=== PATIENT | male | born 1950 | race Caucasian/White ===

== ENCOUNTER 2018-08-29 18:44 | Observation (INO) ==
[2018-08-29 19:13] LABS: Hematocrit 40.4 % (37.5-50.1); Hemoglobin 13.5 g/dL (12.9-16.9); Mean Corpuscular HGB Conc 33.4 g/dL (31.6-35.5); Mean Corpuscular Hemoglobin 30.3 pg (28.0-33.3); Mean Corpuscular Volume 90.6 fL (83.0-100.0); Mean Platelet Volume 10.1 fL (9.4-12.4); Platelet Count 270 K/mcL (140-400); Red Blood Count 4.46 M/mcL (4.19-5.50); White Blood Count 7.2 K/mcL (4.3-11.1)
--- NOTE | 2018-08-29 19:14 | Emergency Department Note ---
Disposition Clinical Impression: Confusion Altered mental status Qualifiers: Altered mental status type: unspecified Qualified Code(s): R41.82 - Altered mental status, unspecified Disposition: Admitted As Inpatient Condition: Fair Referrals: Trav Mckeon DO [Non-Partnered Physician] - Forms: ED Satisfaction Letter Time of Disposition: 21:15 General Adult HPI - General Chief complaint: ED Neuro Symptoms/Deficit Stated complaint: neuro symptoms Time Seen by Provider: 08/29/18 18:48 Source: family - History of Present Illness Pain Scale: 6 - Related Data Home Medications Medication Instructions Recorded Confirmed Levothyroxine [Synthroid] 50 mcg PO DAILY 10/23/16 08/29/18 Pravastatin Sodium [Pravachol] 20 mg PO HS 10/23/16 08/29/18 metFORMIN [Glucophage] 1,000 mg PO BIDWM 10/23/16 08/29/18 Amlodipine Besylate 10 mg PO DAILY 08/29/18 08/29/18 Escitalopram Oxalate 20 mg PO DAILY 08/29/18 08/29/18 Glimepiride [Amaryl] 4 mg PO DAILY 08/29/18 08/29/18 Losartan/Hydrochlorothiazide 1 each PO DAILY 08/29/18 08/29/18 [Losartan-Hctz 50-12.5 mg Tab] Metoprolol Tartrate 50 mg PO BID 08/29/18 08/29/18 Allergies Allergy/AdvReac Type Severity Reaction Status Date / Time No Known Allergies Allergy Verified 08/29/18 18:59 Past Medical History - Past Medical History Medical history: Reports: diabetes, hyperlipidemia, hypertension, thyroid disease, TIA Surgical history: Reports: cholecystectomy, herniorrhaphy, knee replacement Psychiatric history: Reports: depression - Social History Smoking Status: Never smoker Smokeless Tobacco Status: No Alcohol use: Reports: occasionally Drug use: Reports: none Physical Exam - General General appearance: other Course Vital Signs Temperature 98.0 F 08/29/18 18:51 Pulse Rate 82 08/29/18 18:51 Respiratory Rate 18 08/29/18 18:51 Blood Pressure 188/108 08/29/18 18:51 O2 Sat by Pulse Oximetry 100 08/29/18 18:51 Temperature 97.9 F 08/29/18 19:31 Pulse Rate 63 08/29/18 20:46 Respiratory Rate 18 08/29/18 20:46 Blood Pressure 139/95 08/29/18 20:46 O2 Sat by Pulse Oximetry 100 08/29/18 19:24 Oxygen Delivery Oxygen Delivery Room Air Medical Decision Making - Lab Data Result diagrams: 08/29/18 18:54 08/29/18 18:54 Lab Results 08/29/18 08/29/18 08/29/18 Range/Units 18:51 18:54 18:54 WBC 7.2 (4.3-11.1) K/mcL RBC 4.46 (4.19-5.50) M/mcL Hgb 13.5 (12.9-16.9) g/dL Hct 40.4 (37.5-50.1) % MCV 90.6 (83.0-100.0) fL MCH 30.3 (28.0-33.3) pg MCHC 33.4 (31.6-35.5) g/dL RDW 13.0 (11.5-14.5) % Plt Count 270 (140-400) K/mcL MPV 10.1 (9.4-12.4) fL PT 11.2 (9.4-12.1) Seconds INR 1.0 APTT 33.2 (26.0-36.0) Seconds Sodium (136-145) mEq/L Potassium (3.5-5.1) mEq/L Chloride (98-107) mEq/L Carbon Dioxide (23-29) mEq/L BUN (8-23) mg/dL Creatinine (0.70-1.30) mg/dL Est GFR ( Amer) (> 60) Est GFR (Non-Af Amer) (> 60) BUN/Creatinine Ratio (6-26) Glucose (70-105) mg/dL POC Glucose 129 H (70-99) mg/dL Calculated Osmolality (280-300) Calcium (8.6-10.3) mg/dL Troponin I (< 0.04) ng/mL 08/29/18 Range/Units 18:54 WBC (4.3-11.1) K/mcL RBC (4.19-5.50) M/mcL Hgb (12.9-16.9) g/dL Hct (37.5-50.1) % MCV (83.0-100.0) fL MCH (28.0-33.3) pg MCHC (31.6-35.5) g/dL RDW (11.5-14.5) % Plt Count (140-400) K/mcL MPV (9.4-12.4) fL PT (9.4-12.1) Seconds INR APTT (26.0-36.0) Seconds Sodium 139 (136-145) mEq/L Potassium 3.6 (3.5-5.1) mEq/L Chloride 103 (98-107) mEq/L Carbon Dioxide 28 (23-29) mEq/L BUN 17 (8-23) mg/dL Creatinine 1.06 (0.70-1.30) mg/dL Est GFR ( Amer) > 60 (> 60) Est GFR (Non-Af Amer) > 60 (> 60) BUN/Creatinine Ratio 16 (6-26) Glucose 131 H (70-105) mg/dL POC Glucose (70-99) mg/dL Calculated Osmolality 291 (280-300) Calcium 9.2 (8.6-10.3) mg/dL Troponin I < 0.03 (< 0.04) ng/mL Attestation Statement - Attestation Attestation: I, Jean-Claude De Los Santos DO, examined this patient [id number] and my medical decision-making was reviewed with Tapan Spangler DO , Resident Physician. I agree with the documented findings, disposition and treatment plan as described except to the extent set forth below. I personally supervised and was present for the goodrich/critical portions of the procedures completed by the resident documented below. Please see my progress notes for details. 67-year-old male presents emergency room with confusion. Symptom onset was approximately 3 hours prior to arrival. Patient has had waxing and waning symptoms since the end of July where he was seen in outside facility. They evaluated him and told the family that he may have had a TIA. Patient had no other acute medical issues of note according to them. Patient was discharged home and was doing better and then acutely this afternoon his symptoms changed again. He had some difficulty with speech and confusion. On arrival here she was able to wake up and answer questions and talk to us appropriately. Appropriate medical insight to his condition. He had no signs of ataxia or cerebellar function deficits at that time. Because of the acute onset of the symptoms as well as availability of resources, the patient had a stroke alert called immediately on arrival. Patient is not taking any blood thinners at this point. His vital signs were stable outside a very high blood pressure. Patient on physical exam his head is atraumatic his pupils are equal and reactive his oropharynx is patent trachea is midline. Lungs are clear heart is regular. Abdomen is soft. Extremities are normal. Finger to nose testing and [id number] testing is normal. NIH stroke scale on presentation is negative. [facility] will be contacted after CT imaging of the head and labs are resulted. Disposition pending full workup and treatment course. Initial presentation is not consistent with an acute stroke evaluation but we are using it as a potential for acute cranial abnormality justifies further workup. We will continue to monitor his treatment course is completed. EKG was reviewed by myself in documented by the resident physician. Chest x-ray and urinalysis will also be added on. See detailed documentation the physical exam medical intervention, medical decision-making disposition the resident physician's note. No critical care applied to the patient's treatment course at this time. [address] [facility] physician [address]. Garcia reviewed the case and agreed that this is not made acute stroke criteria and does not justify tPA intervention at this time. Recommended further evaluation for psychiatric, metabolic, infectious etiology causing the symptoms here today. Stroke alert was canceled at that time. Patient is otherwise stable. He still continued at baseline mentation is acting appropriate. Patient will be monitored here in the emergency department until disposition is determined. Patient will most likely require admission for further imaging and establish treatment. [address] Lowe reviewed the case. Discussion was had about the waxing and waning of the symptoms as well as a concern for underlying psychiatric related illness. Patient is completely lucid and answers questions appropriately throughout the treatment course. He just describes feeling odd and wants to know why. CT imaging the head was negative labs otherwise all unremarkable. Blood pressures coming down appropriately. Patient will be admitted for symptomatic monitoring and then possible MRI and further treatment. No other recommendations or concerns are noted at this point. Patient is otherwise stable to time of admission
--- NOTE | 2018-08-29 19:17 | Emergency Department Note ---
Disposition Clinical Impression: Confusion Altered mental status Qualifiers: Altered mental status type: unspecified Qualified Code(s): R41.82 - Altered mental status, unspecified Disposition: Admitted As Inpatient Condition: Fair Time of Disposition: 20:51 Neuro HPI - General Chief Complaint: ED Neuro Symptoms/Deficit Stated Complaint: neuro symptoms Time Seen by Provider: 08/29/18 18:48 Source: family (girlfriend) Mode of arrival: ambulatory Limitations: no limitations Nursing Notes Reviewed: Yes Vital Signs Reviewed: Yes - History of Present Illness HPI Narrative: 67-year-old male history of hypertension presents emergency department with confusion. Girlfriend is at bedside and states around 1500 he had sudden onset confusion. He was repeating words and unable to remember things. This is signi ficant change for the past several days where he was initially evaluated at [facility] August 14 and discharge August 18 for similar symptoms. He was discharge home with additional antihypertensive medications. There is no noted extremity weakness or facial droop or slurred speech by he is slow to answer. He does not take any anticoagulants. Reportedly had a fall prior admission. He is also reported in of a chronic headache without any visual changes. He states everything appears foggy. Denies any recent illness fever cough congestion shortness of breath. His point of care glucose performed here 192. Stroke alert was initiated to help mobilize resources. No reported history of stroke. - Related Data Home Medications: Home Medications Medication Instructions Recorded Confirmed Levothyroxine [Synthroid] 50 mcg PO DAILY 10/23/16 08/29/18 Pravastatin Sodium [Pravachol] 20 mg PO HS 10/23/16 08/29/18 metFORMIN [Glucophage] 1,000 mg PO BIDWM 10/23/16 08/29/18 Amlodipine Besylate 10 mg PO DAILY 08/29/18 08/29/18 Escitalopram Oxalate 20 mg PO DAILY 08/29/18 08/29/18 Glimepiride [Amaryl] 4 mg PO DAILY 08/29/18 08/29/18 Losartan/Hydrochlorothiazide 1 each PO DAILY 08/29/18 08/29/18 [Losartan-Hctz 50-12.5 mg Tab] Metoprolol Tartrate 50 mg PO BID 08/29/18 08/29/18 Allergies/Adverse Reactions: Allergies Allergy/AdvReac Type Severity Reaction Status Date / Time No Known Allergies Allergy Verified 08/29/18 18:59 Limitations: ROS unobtainable due to patients medical condition (History mostly obtained through girlfriend) Past Medical History - Past Medical History Source: obtained from family Medical history: Reports: diabetes, hyperlipidemia, hypertension, thyroid disease, TIA Surgical history: Reports: cholecystectomy, herniorrhaphy, knee replacement Psychiatric history: Reports: depression - Social History Smoking Status: Never smoker Smokeless Tobacco Status: No Alcohol use: Reports: occasionally Drug use: Reports: none Physical Exam - General Limitations: altered mental status General appearance: anxious, other (Patient has intermittent episodes of increase anxiety and periods of crying) - Head Head exam: atraumatic, normocephalic, normal inspection - Eye Eye exam: Present: normal appearance, PERRL, EOMI. Absent: nystagmus - ENT ENT exam: normal exam, normal oropharynx, mucous membranes moist - Neck Neck exam: Present: normal inspection, full ROM, trachea midline - Chest Chest inspection: Present: normal inspection, symmetric chest wall rise - Respiratory Respiratory exam: Present: normal lung sounds bilaterally - Cardiovascular Cardiovascular exam: Present: regular rate, normal rhythm, normal heart sounds - Abdominal Exam Abdominal exam: Present: soft, Non-Tender, normal bowel sounds. Absent: tenderness, distention, guarding, rebound, rigidity - Extremities Exam Extremities exam: Present: normal inspection, full ROM, other (Left distal index finger amputation). Absent: tenderness, pedal edema - Back Exam Back exam: Present: normal inspection, full ROM. Absent: tenderness - Neurological Exam Neurological exam: Present: alert, CN II-XII intact - Expanded Neurological Exam Cranial nerves: EOM function (II, III, IV, ): Normal, facial sensation (V): Normal, facial palsy (VII): Normal, gag reflex (IX): Normal, spinal accessory function (XI): Normal, tongue deviation (XII): Normal Cerebellar function: finger to nose: Normal, heel to lilly: Normal Motor strength - LUE: 5/5 Motor strength - RUE: 5/5 Motor strength - LLE: 5/5 Motor strength - RLE: 5/5 Upper motor neuron exam: phuc neglect: Absent bilaterally, pronator drift: Absent bilaterally Sensory exam upper extremity: light touch: Normal Sensory exam lower extremity: light touch: Normal Coma Scale Eye Opening: Spontaneous Coma Scale Motor Response: Obeys Commands Coma Scale Verbal Response: Confused Coma Scale Total: 14 - Psychiatric Psychiatric exam: Present: normal mood, depressed, anxious, flat affect. Absent: agitated - Skin Skin exam: Present: warm, dry, intact, normal color. Absent: rash, cyanosis, diaphoresis Course Course Narrative: Patient presents with reports that confusion and delayed speech. On examination no neurologic focal deficits. NIH score of 0. Stroke alert was initially ordered to help mobilize resources to have quick evaluation. He is outside the TPA window. Otherwise no reports of febrile illnesses. Namely states this is been a chronic thing ever since his discharge from the hospital approximately 2 weeks ago. He has intermittent episodes of sudden bursts of anxiety as he continues to question why this is happening to him. - Reevaluation(s) Reevaluation #1: Review of his labs unremarkable. I think there is a component of possible psychiatric issues however given his continued confused state he would benefit further evaluation. His CT scan did show an old infarct but we do not have a prior CT to compare. This is not consistent with his current presentation. There was also initial consideration for PRES, but his CT head did not reveal any acute findings in his blood pressure continues to spontaneously improved without any significant mental status improvement. After his sudden bursts of anxiety his speech was clear and he was quiet alert and oriented. He has no meningeal signs. I do not suspect any other infectious etiology. She would benefit further evaluation with admission. Patient and family members are in agreement with this plan. Impression is altered mental status and confusion. - Consultations Consultation #1: [facility] reports critical finding of old right lacunar infarct, no acute findings. Dr. Garcia NEUROLOGIST from [facility], not tPa candidate. Possible psychiatric v metabolic etiology. Recommends further evaluation. Time: 19:17 Consultation #2: Spoke with on-call hospitalist bharti Braun to admit for AMS, confusion. No further orders at this time Vital Signs Temperature 98.0 F 08/29/18 18:51 Pulse Rate 82 08/29/18 18:51 Respiratory Rate 18 08/29/18 18:51 Blood Pressure 188/108 08/29/18 18:51 O2 Sat by Pulse Oximetry 100 08/29/18 18:51 Temperature 97.9 F 08/29/18 19:31 Pulse Rate 63 08/29/18 20:46 Respiratory Rate 18 08/29/18 20:46 Blood Pressure 139/95 08/29/18 20:46 O2 Sat by Pulse Oximetry 100 08/29/18 19:24 Oxygen Delivery Oxygen Delivery Room Air Neuro Symptoms/Deficit - MDM Narrative Medical decision making narrative: Patient was discussed with my attending physician who agrees with ED management and final disposition. They independently evaluated the patient. Please refer to their attestation to this encounter for additional information. This note was generated by [employer] voice recognition software and as a result grammatical or spelling errors may occur using this program. - Medical Records Medical records reviewed: Yes I reviewed the patient's medical records. - Lab Data Lab results reviewed: Yes I reviewed the patient's lab results. Result diagrams: 08/29/18 18:54 08/29/18 18:54 Lab Results 08/29/18 08/29/18 08/29/18 Range/Units 18:51 18:54 18:54 WBC 7.2 (4.3-11.1) K/mcL RBC 4.46 (4.19-5.50) M/mcL Hgb 13.5 (12.9-16.9) g/dL Hct 40.4 (37.5-50.1) % MCV 90.6 (83.0-100.0) fL MCH 30.3 (28.0-33.3) pg MCHC 33.4 (31.6-35.5) g/dL RDW 13.0 (11.5-14.5) % Plt Count 270 (140-400) K/mcL MPV 10.1 (9.4-12.4) fL PT 11.2 (9.4-12.1) Seconds INR 1.0 APTT 33.2 (26.0-36.0) Seconds Sodium (136-145) mEq/L Potassium (3.5-5.1) mEq/L Chloride (98-107) mEq/L Carbon Dioxide (23-29) mEq/L BUN (8-23) mg/dL Creatinine (0.70-1.30) mg/dL Est GFR ( Amer) (> 60) Est GFR (Non-Af Amer) (> 60) BUN/Creatinine Ratio (6-26) Glucose (70-105) mg/dL POC Glucose 129 H (70-99) mg/dL Calculated Osmolality (280-300) Calcium (8.6-10.3) mg/dL Troponin I (< 0.04) ng/mL Urine Color (Yellow) Urine Clarity (Clear) Urine pH (5.0-8.0) pH Units Ur Specific [place] (1.010-1.025) Urine Protein (Neg-Trace) mg/dL Urine Glucose (UA) (Normal) mg/dL Urine Ketones (Negative) mg/dL Urine Blood (Negative) Urine Nitrite (Negative) Urine Bilirubin (Negative) Urine Urobilinogen (Normal) mg/dL Ur Leukocyte Esterase (Negative) Urine Microscopic RBC (0-3) per hpf Urine Microscopic WBC (0-3) per hpf Ur Squamous Epith Cells (None-Few) per lpf Urine Bacteria (None-Few) per hpf Hyaline Casts (None-Few) per lpf Ur Culture Indicated? (NO) 08/29/18 08/29/18 Range/Units 18:54 21:00 WBC (4.3-11.1) K/mcL RBC (4.19-5.50) M/mcL Hgb (12.9-16.9) g/dL Hct (37.5-50.1) % MCV (83.0-100.0) fL MCH (28.0-33.3) pg MCHC (31.6-35.5) g/dL RDW (11.5-14.5) % Plt Count (140-400) K/mcL MPV (9.4-12.4) fL PT (9.4-12.1) Seconds INR APTT (26.0-36.0) Seconds Sodium 139 (136-145) mEq/L Potassium 3.6 (3.5-5.1) mEq/L Chloride 103 (98-107) mEq/L Carbon Dioxide 28 (23-29) mEq/L BUN 17 (8-23) mg/dL Creatinine 1.06 (0.70-1.30) mg/dL Est GFR ( Amer) > 60 (> 60) Est GFR (Non-Af Amer) > 60 (> 60) BUN/Creatinine Ratio 16 (6-26) Glucose 131 H (70-105) mg/dL POC Glucose (70-99) mg/dL Calculated Osmolality 291 (280-300) Calcium 9.2 (8.6-10.3) mg/dL Troponin I < 0.03 (< 0.04) ng/mL Urine Color Yellow (Yellow) Urine Clarity Clear (Clear) Urine pH 7.5 (5.0-8.0) pH Units Ur Specific [place] > 1.030 H (1.010-1.025) Urine Protein 30 H (Neg-Trace) mg/dL Urine Glucose (UA) Normal (Normal) mg/dL Urine Ketones Trace H (Negative) mg/dL Urine Blood Large H (Negative) Urine Nitrite Negative (Negative) Urine Bilirubin Negative (Negative) Urine Urobilinogen Normal (Normal) mg/dL Ur Leukocyte Esterase Negative (Negative) Urine Microscopic RBC TNTC H (0-3) per hpf Urine Microscopic WBC 0-3 (0-3) per hpf Ur Squamous Epith Cells Moderate H (None-Few) per lpf Urine Bacteria None Seen (None-Few) per hpf Hyaline Casts None Seen (None-Few) per lpf Ur Culture Indicated? NO (NO) - Radiology Data Radiology results reviewed: Yes I reviewed the patient's radiology results. Head CT 08/29/18 19:01 IMPRESSION: No acute intracranial abnormality. Small old lacunar infarct in the right parietal [facility] radiata. Results were reported to Dr. Spangler at 7:15 p.m. on August 29, 2018. D/ / Erwin Valerio MD / Erwin Valerio MD Interpreting Provider: Erwin Valerio MD Chest X-Ray 08/29/18 20:00 IMPRESSION: Low lung volume study showing bibasilar airspace disease, likely accentuated by low lung volumes. Correlation for edema or pneumonia is recommended. Follow-up is recommended, preferably with a PA and lateral study. D/ / Megha Encinas Cha, MD / Megha Encinas Cha, MD Interpreting Provider: Megha Encinas Cha, MD - EKG Data EKG attestation: Yes I reviewed and interpreted this EKG. EKG results narrative: EKG performed 1852 normal sinus rhythm 76 beats per minute, normal axis, early R wave progression, no ST elevation or depression, intervals appear within normal limits. No old EKG available for comparison at this time. No acute ischemic changes. NIH Stroke Scale - Level of Consciousness LOC: Alert - LOC Questions LOC Questions: Answers both correctly - LOC Commands LOC Commands: Performs both correctly - Best Gaze Best Gaze: Normal - Visual Visual: No visual loss - Facial Palsy Facial Palsy: Normal - Motor Arms Motor Arm-Left: No drift for 10 seconds Motor Arm-Right: No drift for 10 seconds - Motor Legs Motor Leg-Left: No drift for 5 seconds Motor Leg-Right: No drift for 5 seconds - Limb Ataxia Limb Ataxia: Absent of affected limb too weak to perform exam - Sensory Sensory: Normal - Best Language Best Language: No aphasia - Dysarthria Dysarthria: Normal - Extinction and Inattention Extinction and Inattention: Normal - NIHSS Total Score NIHSS Total Score: 0 TPA Checklist - Eligibilty for IV tPA 2. Clinical diagnosis of ischemic stroke causing deficit: No - LKW: 3-4.5 hrs Add. Warnings/Precautions Patient/family understanding: The patient/family members have been counseled and understood the risk, benefit, and alternatives of treatment. Attestation Statement - Attestation Attestation: I, Jean-Claude De Los Santos DO, examined this patient [id number] and my medical decision-making was reviewed with Tapan Spangler DO , Resident Physician. I agree with the documented findings, disposition and treatment plan as described except to the extent set forth below. I personally supervised and was present for the goodrich/critical portions of the procedures completed by the resident documented below. Please see my progress notes for details.
[2018-08-29 19:23] LABS: Prothrombin Time 11.2 Seconds (9.4-12.1)
[2018-08-29 19:25] LABS: Activated Partial Thrombo Time 33.2 Seconds (26.0-36.0)
[2018-08-29 19:27] LABS: BUN/Creatinine Ratio 16 (6-26); Blood Urea Nitrogen 17 mg/dL (8-23); Calcium 9.2 mg/dL (8.6-10.3); Carbon Dioxide 28 mEq/L (23-29); Chloride 103 mEq/L (98-107); Glucose 131 mg/dL (70-105); Osmolality,Calculated 291 (280-300); Potassium 3.6 mEq/L (3.5-5.1); Sodium 139 mEq/L (136-145); eGFR For African Americans > 60 (> 60); eGFR For Non-African Americans > 60 (> 60)
[2018-08-29 19:28] LABS: Troponin I < 0.03 ng/mL (< 0.04)
[2018-08-29] MEDS ORDERED: Aspirin 325 MG TABLET PO ONE (20:39)
[2018-08-29 21:15] LABS: Bilirubin,Urine Negative (Negative); Blood,Urine Large (Negative); Clarity,Urine Clear (Clear); Color,Urine Yellow (Yellow); Glucose,Urine (UA) Normal (Normal); Ketones,Urine Trace mg/dL (Negative); Leukocyte Esterase,Urine Negative (Negative); Nitrite,Urine Negative (Negative); PH,Urine 7.5 pH Units (5.0-8.0); Protein,Urine 30 mg/dL (Neg-Trace); Specific Gravity,Urine > 1.030 (1.010-1.025); Urobilinogen,Urine Normal (Normal)
[2018-08-29 21:17] LABS: Bacteria,Urine None Seen per hpf (None-Few); Hyaline Casts,Urine None Seen per lpf (None-Few); RBC,Urine TNTC per hpf (0-3); Squamous Epithelial Cell,Urine Moderate per lpf (None-Few); WBC,Urine 0-3 per hpf (0-3)
[2018-08-30] MEDS ORDERED: Ondansetron 4 MG/2 ML VIAL IVP PRN (00:10)
[2018-08-30] MEDS ORDERED: Naloxone 0.4 MG/ML INJ IVP PRN (00:10)
[2018-08-30] MEDS ORDERED: Acetaminophen 325 MG TABLET PO PRN (00:10)
[2018-08-30] MEDS ORDERED: *HR* Dextrose 50 % in Water (Syg) 50 ML SYRINGE IVP PRN (00:18)
[2018-08-30] MEDS ORDERED: Dextrose Gel 15 GM/37.5 ML TUBE PO PRN ×2 (00:18)
[2018-08-30] MEDS ORDERED: D5% in Water 1,000 ML IVC PRN (00:18)
[2018-08-30] MEDS: 0.9 % Sodium Chloride 1,000 ML IVC SCH ×2 (01:23→12:27)
--- NOTE | 2018-08-30 01:30 | Internal Med History&Physical ---
Date of Encounter: 08/29/18 Time of Encounter: 23:40 Internal Medicine - H&P: HPI Chief complaint: confusion; dysarthria Admitted From: Emergency Dept Plans for Post Hospital Care: Home History of present illness: Mr. Barrow is a 67 year old male who presents to the ER today with acute onset of global confusion/amnesia, dysarthria, and unsteadiness. His was sent to the ER by family for possible stroke. Stroke alert was called and consultation was made with [facility] neurology. Patient was deemed not a candidate for TPA and did not warrant transfer to [facility]. He was recommended for admission to [facility] for stroke workup and possible other etiologies for his neurocognitive symptoms. Upon my assessment of the patient, he is sleeping but easily arousable. His significant other is at the bedside. She provides much of history, and he confirms most of it. He appears to have significant amnesia of the past 2 weeks. He is initially slow to respond but verbalizes well and communicates well during our conversation. He was hospitalized just 2 weeks ago at [facility] and was told that he might have had a stroke. Our CT scan here suggests an old lacunar infarct. He denies any prior known strokes. He denies any fevers, chills, night sweats, seizure activity, or syncopal spells. Today's spell included acute confusion/amnesia, initial dysarthria expressive aphasia, and difficulty ambulating and unsteadiness. Symptoms have all resolved, but he still has a timeframe where he does not remember what transpired -- roughly the last 2 weeks. Regarding his medications, he has had 2 new medications added since his hospitalization at [place]. These include amlodipine and losartan/HCT. I reviewed his labs and note that he has significant blood in his urine. He denies any flank pain, dysuria, or any gross hematuria. He has had no fevers or chills. He has been working excessively in an environment which is not air conditioned and he has been sweating profusely. He denies any episodes of hypoglycemia. He is diabetic and takes oral medications. Past Med Surg Social Fam HX - Past Medical History Attestation: Yes The following information was validated with the patient. Source: patient, old records reviewed, obtained from family Medical history: diabetes, hyperlipidemia, hypertension, thyroid disease, TIA Psychiatric history: depression - Past Surgical History Surgical History: cholecystectomy, herniorrhaphy, knee replacement - Social History Smoking Status: Never smoker Smokeless Tobacco Status: No Alcohol use: occasionally Drug use: none Current living situation: Home Activity Level: Independent ambulation Recent Out of Country Travel Within the Last 8 Weeks: No - Family History Mother Hx Family Neuromuscular Disorders: No Hx Family Neurologic Disorders: No Father Hx Family Neuromuscular Disorders: No Hx Family Neurologic Disorders: No Internal Medicine - H&P: Meds Levothyroxine [Synthroid] 50 mcg PO DAILY 10/23/16 [History] Pravastatin Sodium [Pravachol] 20 mg PO HS 10/23/16 [History] metFORMIN [Glucophage] 1,000 mg PO BIDWM 10/23/16 [History] Amlodipine Besylate 10 mg PO DAILY 08/29/18 [History] Escitalopram Oxalate 20 mg PO DAILY 08/29/18 [History] Glimepiride [Amaryl] 4 mg PO DAILY 08/29/18 [History] Losartan/Hydrochlorothiazide [Losartan-Hctz 50-12.5 mg Tab] 1 each PO DAILY 08/29/18 [History] Metoprolol Tartrate 50 mg PO BID 08/29/18 [History] Allergy/AdvReac Type Severity Reaction Status Date / Time No Known Allergies Allergy Verified 08/29/18 18:59 - Constitutional Constitutional: weakness, no chills, no fever(s), no falls, no night sweats - EENT Eyes: no blurry vision, no change in vision Nose, mouth and throat: no nasal congestion, no sinus pressure, no sore throat - Cardiovascular Cardiovascular ROS IM: no chest pain, no dyspnea, no dyspnea on exertion, no lightheadedness, no orthopnea, no syncope - Respiratory Respiratory: no cough, no dyspnea on exertion, no chest congestion, no excessive phlegm production, no change in phlegm color - Gastrointestinal Gastrointestinal: no abdominal pain, no diarrhea, no hematemesis, no hemato chezia, no melena, no nausea, no vomiting - Genitourinary Genitourinary ROS male: no dysuria, no flank pain, no hematuria - Musculoskeletal Musculoskeletal ROS IM: no arthralgias, no back pain - Integumentary Integumentary IM: no rash, no jaundice - Neurological Neurological ROS: abnormal speech, confusion, disequilibrium, dizziness, no focal weakness, no frequent falls, no headache(s) - Psychiatric Psychiatric: no anxiety, no depression - Endocrine Endocrine IM: no cold intolerance, no heat intolerance, no polydipsia, no polyphagia, no polyuria - Allergic/Immunologic Allergic/Immunologic: no GI upset with certain foods - Constitutional Vitals: Temp Pulse Resp BP Pulse Ox 98.0 F 69 16 140/87 96 08/29/18 22:24 08/29/18 22:24 08/29/18 22:24 08/29/18 22:24 08/29/18 22:24 General appearance: Present: cooperative, mild distress, A&O X 3, pleasant, answers questions appropriately Exam: initially confused, disoriented, and amnesic; shortly starting conversation he appeared to be normal -- confirmed girlfriend - Head Head exam: Present: atraumatic, normal inspection - Eye Eye exam: Present: EOMI, PERRL. Absent: scleral icterus Pupils: Present: normal accommodation - ENT ENT exam: Present: mucous membranes dry, normal exam, normal oropharynx - Neck Neck exam general surgery: Present: full ROM, supple, trachea midline. Absent: tenderness, nuchal rigidity, thyromegaly - Respiratory Respiratory exam: Present: CTAB. Absent: chest wall tenderness, rales, rhonchi, wheezes - Cardiovascular Cardiovascular exam: Present: RRR, +S1, +S2. Absent: diastolic murmur, systolic murmur - GI/Abdominal GI/Abdominal exam: Present: normal bowel sounds, soft. Absent: guarding, hepatomegaly, mass, rebound, splenomegaly, tenderness - Extremities Exam Extremities exam: Present: full ROM, normal capillary refill, warm, radial pulses palpable and symmetrical. Absent: calf tenderness, joint swelling, pedal edema, tenderness - Back Exam Back exam: Absent: CVA tenderness (L), CVA tenderness (R) - Neurological Exam Neurological exam: Present: alert, CN II-XII intact, oriented X3, reflexes n ormal, strengths equal and symetr throughout. Absent: pronater drift, facial droop, speech deficit Additional comments: abnormal finger to nose testing and subtle abnormal heel to lilly testing - Psychiatric Psychiatric exam: Present: flat affect - Skin Skin exam: Present: dry, intact, warm Internal Med - H&P Results - Labs CBC & Chem 7: 08/29/18 18:54 08/29/18 18:54 Labs: Short CBC 08/29/18 Range/Units 18:54 WBC 7.2 (4.3-11.1) K/mcL Hgb 13.5 (12.9-16.9) g/dL Hct 40.4 (37.5-50.1) % Plt Count 270 (140-400) K/mcL BMP 08/29/18 18:54 Sodium 139 Potassium 3.6 Chloride 103 Carbon Dioxide 28 BUN 17 Creatinine 1.06 Glucose 131 H Calcium 9.2 Cardiac Enzymes 08/29/18 Range/Units 18:54 Troponin I < 0.03 (< 0.04) ng/mL Urine 08/29/18 Range/Units 21:00 Urine Color Yellow (Yellow) Urine Clarity Clear (Clear) Urine pH 7.5 (5.0-8.0) pH Units Ur Specific [place] > 1.030 H (1.010-1.025) Urine Protein 30 H (Neg-Trace) mg/dL Urine Glucose (UA) Normal (Normal) mg/dL - EKG Data -: EKG Interpreted by Myself - EKG Data Prior EKG available for review: no EKG comments: 08/30/18 01:35 NSR; no acute St-T changes - Impressions ITS Impressions Head CT 08/29/18 19:01 IMPRESSION: No acute intracranial abnormality. Small old lacunar infarct in the right parietal Hayden radiata. Results were reported to Dr. Spangler at 7:15 p.m. on August 29, 2018. D/ / Erwin Valerio MD / Erwin Valerio MD Interpreting Provider: Erwin Valerio MD Chest X-Ray 08/29/18 20:00 IMPRESSION: Low lung volume study showing bibasilar airspace disease, likely accentuated by low lung volumes. Correlation for edema or pneumonia is recommended. Follow-up is recommended, preferably with a PA and lateral study. D/ / Megha Encinas Cha, MD / Megha Encinas Cha, MD Interpreting Provider: Megha Encinas Cha, MD - Diagnostic Studies CT scan - head Status: image reviewed by me (negative; old lacunar infarct) - Assessment and Plan (1) TIA (transient ischemic attack) Current Visit: Yes Status: Acute Assessment and plan: 1. Will proceed with stroke work-up including neurochecks. 2. MRI brain, Carotid Dopplers, and ECHO ordered. 3. Consult neurology. 4. Consult PT/OT. 5. Monitor glucose for signs of hypoglycemia. (2) Hematuria Current Visit: Yes Status: Acute Assessment and plan: 1. CT Renal Study ordered. 2. Hydrate with IVF. 3. CPK ordered given recent excessive work and heat exposure. 4. May need urology and/or nephrology consultation. Qualifiers: Hematuria type: unspecified type Qualified Code(s): R31.9 - Hematuria, unspecified (3) Type 2 diabetes mellitus Current Visit: Yes Status: Chronic Assessment and plan: 1. Hold oral meds. 2. Will order SSI and monitor glucose closely. Qualifiers: Diabetes mellitus manager terminal insulin use: without jail use Diabetes mellitus complication status: with diabetic arthropathy Diabetes mellitus complication detail: with neuropathic arthropathy Qualified Code(s): E11.610 - Type 2 diabetes mellitus with diabetic neuropathic arthropathy (4) Altered mental status Current Visit: Yes Status: Acute Assessment and plan: 1. Back to baseline now per girlfriend. 2. Monitor and proceed with stroke work-up as above. 3. Avoid mind-altering medications. Qualifiers: Altered mental status type: transient alteration of awareness Qualified Code(s): R40.4 - Transient alteration of awareness (5) DVT prophylaxis Current Visit: Yes Status: Acute Assessment and plan: 1. EPCD's.
[2018-08-30 07:30] LABS: Basophils % 0.8 %; Eosinophils # 0.2 K/mcL (0.0-0.6); Eosinophils % 3.4 %; Hematocrit 38.7 % (37.5-50.1); Immature Granulocytes % 0.4 % (0-4); Lymphocytes # 1.2 K/mcL (0.6-4.6); Lymphocytes % 25.2 %; Mean Corpuscular HGB Conc 33.6 g/dL (31.6-35.5); Mean Corpuscular Hemoglobin 30.4 pg (28.0-33.3); Mean Corpuscular Volume 90.4 fL (83.0-100.0); Monocytes # 0.4 K/mcL (0.0-1.3); Monocytes % 8.3 %; Neutrophils # 2.9 K/mcL (1.6-8.9); Platelet Count 236 K/mcL (140-400); Red Blood Count 4.28 M/mcL (4.19-5.50); Red Cell Distribution Width 12.9 % (11.5-14.5); Segmented Neutrophils % 61.9 %; White Blood Count 4.7 K/mcL (4.3-11.1)
[2018-08-30 07:48] LABS: Alanine Aminotransferase 18 Units/L (7-52); Albumin 3.6 g/dL (3.5-5.7); Albumin/Globulin Ratio 1.4 (1.1-2.2); Alkaline Phosphatase 90 Units/L (34-104); Aspartate Amino Transferase 16 Units/L (13-39); BUN/Creatinine Ratio 14 (6-26); Bilirubin,Total 0.4 mg/dL (0.3-1.0); Blood Urea Nitrogen 11 mg/dL (8-23); Calcium 8.7 mg/dL (8.6-10.3); Carbon Dioxide 27 mEq/L (23-29); Chloride 102 mEq/L (98-107); Globulin 2.6 g/dL (2.4-3.5); Glucose 136 mg/dL (70-105); Magnesium 1.8 mg/dL (1.6-2.6); Osmolality,Calculated 293 (280-300); Potassium 3.1 mEq/L (3.5-5.1); Sodium 141 mEq/L (136-145); Total Protein 6.2 g/dL (6.4-8.9); eGFR For African Americans > 60 (> 60); eGFR For Non-African Americans > 60 (> 60)
[2018-08-30 07:54] LABS: INR 1.1; Prothrombin Time 12.1 Seconds (9.4-12.1)
[2018-08-30 07:57] LABS: Activated Partial Thrombo Time 33.5 Seconds (26.0-36.0)
--- NOTE | 2018-08-30 08:24 | Internal Med Progress Note ---
Hospitalist Progress Note - Encounter Date of Encounter: 08/30/18 Time of Encounter: 09:30 - Subjective Interval History: Trav Barrow is a 67 YOM with history of DM, HTN, HLD, thyroid disease who presented to the ER with complaint of weakness and amnesia for the past 2 weeks. Stroke alert was called, CT show possible old lacunar infarct and [facility] consult stated that patient was not a candidate for TPA. He was admitted for stroke workup. MRI, carotid dopplers, and ECHO pending. - Exam Vitals: Temp Pulse Resp BP Pulse Ox 97.9 F 69 15 156/97 95 08/30/18 06:44 08/30/18 06:44 08/30/18 06:44 08/30/18 06:44 08/30/18 06:44 - Time Spent with Patient Total time spent is greater than 50% in coordination of care (as documented) at patient's floor/unit and/or counseling patient: Internal Medicine: Result - Labs CBC & Chem 7: 08/30/18 07:04 08/30/18 07:04 Labs: Short CBC 08/29/18 08/30/18 Range/Units 18:54 07:04 WBC 7.2 4.7 (4.3-11.1) K/mcL Hgb 13.5 13.0 (12.9-16.9) g/dL Hct 40.4 38.7 (37.5-50.1) % Plt Count 270 236 (140-400) K/mcL Neutrophils # 2.9 (1.6-8.9) K/mcL BMP 08/29/18 08/30/18 18:54 07:04 Sodium 139 141 Potassium 3.6 3.1 L Chloride 103 102 Carbon Dioxide 28 27 BUN 17 11 Creatinine 1.06 0.80 Glucose 131 H 136 H Calcium 9.2 8.7 Cardiac Enzymes 08/29/18 Range/Units 18:54 Troponin I < 0.03 (< 0.04) ng/mL Liver Function 08/30/18 Range/Units 07:04 Total Bilirubin 0.4 (0.3-1.0) mg/dL AST 16 (13-39) Units/L ALT 18 (7-52) Units/L Alkaline Phosphatase 90 (34-104) Units/L Albumin 3.6 (3.5-5.7) g/dL Urine 08/29/18 Range/Units 21:00 Urine Color Yellow (Yellow) Urine Clarity Clear (Clear) Urine pH 7.5 (5.0-8.0) pH Units Ur Specific [place] > 1.030 H (1.010-1.025) Urine Protein 30 H (Neg-Trace) mg/dL Urine Glucose (UA) Normal (Normal) mg/dL - ABG Interpretation ABG results: PT/INR, D-dimer PT 12.1 Seconds (9.4-12.1) 08/30/18 07:04 - Impressions Impressions Head CT 08/29/18 19:01 IMPRESSION: No acute intracranial abnormality. Small old lacunar infarct in the right parietal Hayden radiata. Results were reported to Dr. Spangler at 7:15 p.m. on August 29, 2018. D/ / Erwin Valerio MD / Erwin Valerio MD Interpreting Provider: Erwin Valerio MD Chest X-Ray 08/29/18 20:00 IMPRESSION: Low lung volume study showing bibasilar airspace disease, likely accentuated by low lung volumes. Correlation for edema or pneumonia is recommended. Follow-up is recommended, preferably with a PA and lateral study. D/ / Megha Encinas Cha, MD / Megha Encinas Cha, MD Interpreting Provider: Megha Encinas Cha, MD Consult Discharge Plan - Plan Referrals: Trav Mckeon DO [Primary Care Provider] -
[2018-08-30 08:31] LABS: Estimated Average Glucose 192 mg/dl
--- NOTE | 2018-08-30 08:43 | Neurology - Consult Note ---
Date of Encounter: 08/30/18 Time of Encounter: 08:43 Assessment and Plan (1) Altered mental status Current Visit: Yes Status: Acute Patient presented with generalized confusion, amnesia, weakness, and ataxia He was recently hospitalized for similar symptoms but we do not have those records Work up at admission demonstrated remote infarct, hematuria, and bibasilar airspace disease Work up did not demonstrate new infarct, evidence of infection, or metabolic deviation Brain MRI, Echocardiogram, Carotid Doppler are all ordered and pending Differential is wide, and includes stroke, seizure, encephalopathy of several etiologies Physical exam is negative for focal deficits, but positive for cerebellar deficits We have additionally ordered MR C-Spine, EEG, B12, and Folate Also recommend securing documentation from [facility] We will anticipate imaging and lab results and continue to follow Further recommendations per Dr. Curry Qualifiers: Altered mental status type: unspecified Qualified Code(s): R41.82 - Altered mental status, unspecified (2) Ataxia Current Visit: Yes Status: Acute (3) Generalized weakness Current Visit: Yes Status: Acute History of Present Illness Chief complaint: altered mental status HPI: Mr. Barrow is a 67 year old male with a past medical history of hypertension, hyperlipidemia, hypothyroidism, diabetes, past psychiatric medical history. He presented to [facility] ED yesterday for generalized confusion, generalized weakness. His recent history of present illness is difficult to establish secondary to confusion however timeline is as follows. The patient lives with his significant other but also has an apartment in [facility] for when he is working in [place]. He was last living with his significant other July 27 which is the last time he was seen at baseline, his baseline being alert and oriented 3 with no deficits. He left to his apartment to begin working in a [employer] in [place] [place] [facility] for an extended period of time, apparently working 10 hour shifts 5 days a week and a non-air conditioned building. During this time he did not have contact with his significant other. On August 14 another tenant at his apartment complex witnessed him sitting in his car in the parking lot with the vehicle running, and approached him. He was apparently acting very strangely and seemed confused, and when he exited the vehicle had very poor balance. This tenant contacted the landlady who then called EMS, wherein he was taken to [facility]. The patient was kept in [facility] and apparently worked up until he was released on August 18 back to his apartment in [place]. He stayed in that apartment on his own and did not return to work. He returned to the house he shares with his significant other on August 25 which is the first point of contact he had with his significant other since July 27. On resuming that contact the significant other did not know the patient had been in the hospital, but noticed that the patient was very obviously not at his baseline and was extremely confused, seemed generally weak and off balance, and was in fact very concerned that he had even driven to her house. From August 25 to presentation yesterday on August 29 patient apparently maintained this level of generalized confusion, generalized weakness, and imbalance. During that time he did not exhibit slurred speech, facial droop, tremor or seizure like activity, or falls or syncope. Yesterday on August 29 the patient apparently became very pale, with worsened confusion and generalized weakness and so the significant other brought him to the emergency department. In the emergency department workup was significant for a small old lacunar infarct in the right parietal menezes radiata, bibasilar airspace disease, large amounts of blood on urinalysis, and a [facility] telemedicine evaluation that did not recommend TPA or transfer. Otherwise general labs and exams were negative for acute process. The patient was admitted to the hospital service who in turn ordered MRI of the brain without contrast, echocardiogram, carotid Dopplers, and consulted neurology. On my exam the patient recalls going to work every weekday from July 27 to August 14, however his memory is very limited. He does not remember being hospitalized or the hospital stay, or his time alone at this apartment after his hospital discharge on August 18 to the time he returned to his significant other on August 25. He tells me he feels very confused as to what is happening to him and cannot remember any significant delineation in his cognition or memory. He re ports generalized weakness and fatigue but denies any focal weakness. He also reports a generalized loss of balance without lightheadedness or vertigo. He also reports some episodes of urinary incontinence. 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 He also denies any chest pain, shortness of breath, fever or chills, abdominal pain/nausea/vomiting. Past Med Surg Social Fam HX - Past Medical History Medical history: diabetes, hyperlipidemia, hypertension, thyroid disease, TIA Psychiatric history: depression - Past Surgical History Surgical History: cholecystectomy, herniorrhaphy, knee replacement - Social History Smoking Status: Never smoker Smokeless Tobacco Status: No Alcohol use: occasionally Drug use: none - Family History Mother Hx Family Neuromuscular Disorders: No Hx Family Neurologic Disorders: No Father Hx Family Neuromuscular Disorders: No Hx Family Neurologic Disorders: No Medications and Allergies Levothyroxine [Synthroid] 50 mcg PO DAILY 10/23/16 [History] Pravastatin Sodium [Pravachol] 20 mg PO HS 10/23/16 [History] metFORMIN [Glucophage] 1,000 mg PO BIDWM 10/23/16 [History] Amlodipine Besylate 10 mg PO DAILY 08/29/18 [History] Escitalopram Oxalate 20 mg PO DAILY 08/29/18 [History] Glimepiride [Amaryl] 4 mg PO DAILY 08/29/18 [History] Losartan/Hydrochlorothiazide [Losartan-Hctz 50-12.5 mg Tab] 1 each PO DAILY 08/29/18 [History] Metoprolol Tartrate 50 mg PO BID 08/29/18 [History] Allergy/AdvReac Type Severity Reaction Status Date / Time No Known Allergies Allergy Verified 08/29/18 18:59 All Systems: The remainder of the systems were reviewed and are negative Review of Systems: 10 point review of systems negative except as otherwise mentioned in history of present illness. Physical Examination - Vital Signs Vital Signs: Initial Vital Signs Temp Pulse Resp BP Pulse Ox 98.0 F 82 18 188/108 100 08/29/18 18:51 08/29/18 18:51 08/29/18 18:51 08/29/18 18:51 08/29/18 18:51 - Exam Exam: Examination: General Examination: *CONSTITUTIONAL: Alert and oriented x3, no acute distress *GENERAL APPEARANCE OF PATIENT appears healthy and well groomed *EYES: pupils equal, round, reactive to light and accommodation, conjunctiva clear without masses or ulcerations *CARDIOVASCULAR: Regular rate and rhythm, S1, S2, no mumurs, rubs, or gallops, no peripheral edema, no carotid bruit * MUSCULOSKELETAL: *GAIT AND STATION: Gait not tested, positive Romberg's test *ASSESSMENT OF MUSCLE STRENGTH IN THE UPPER AND LOWER EXTREMITIES bilateral deltoid, bicep, tricep, home connect lpn strength, hip flexors ,anterior tibialis, dorsoflexion of the foot 4/5 *MUSCLE TONE IN THE UPPER AND LOWER EXTREMITIES normal. No abnormal movements, fasciculations or atrophy identified. No cogwheel rigidity. Neurological: *ORIENTATION to person, situation, time and place, however he is very slow to respond *LANGUAGE AND FUNCTION no significant aphasia or dysarthia was noted. *ATTENTION AND CONCENTRATION are inhibited *FUND OF KNOWLEDGE aware of current events, past history, vocabulary *MENTAL attention span and concentration slowed *CN II visual chowdhury intact *CN III,IV, PERRLA extraocular eye movements were full, no nystagmus and no ptosis noted. *CN V shows normal sensation and jaw opens symmetrically. *CN VII shows normal facial movement symmetrically, upper and lower bilaterally. *CN VIII shows no significant hearing loss on exam *CN IX-X palate elevated symmetrically *CN XI normal strength in the sternocleidomastoid muscles, symmetrical shoulder shrugging. *CN XII tongue protruded in the midline, with normal strength and movement. *SENSORY EXAMINATION light touch intact, slightly diminished bilateral lower extremities *REFLEXES: deep tendon reflexes were not elicited, but were symmetrical and equal throughout *CEREBELLAR TESTING normal finger to nose with eyes open, patient was not able to accomplish with eyes closed *PAIN LEVEL 0/10 Results - Laboratory Findings CBC and BMP: 08/30/18 07:04 08/30/18 07:04 Abnormal lab findings: Abnormal lab results Potassium 3.1 mEq/L (3.5-5.1) L 08/30/18 07:04 Glucose 136 mg/dL (70-105) H 08/30/18 07:04 POC Glucose 129 mg/dL (70-99) H 08/29/18 18:51 Hemoglobin A1c 8.3 % (-5.6) H 08/30/18 07:04 Serum Total Protein 6.2 g/dL (6.4-8.9) L 08/30/18 07:04 Ur Specific [place] > 1.030 (1.010-1.025) H 08/29/18 21:00 Urine Protein 30 mg/dL (Neg-Trace) H 08/29/18 21:00 Urine Ketones Trace mg/dL (Negative) H 08/29/18 21:00 Urine Blood Large (Negative) H 08/29/18 21:00 Urine Microscopic RBC TNTC per hpf (0-3) H 08/29/18 21:00 Ur Squamous Epith Cells Moderate per lpf (None-Few) H 08/29/18 21:00 Consult Discharge Plan - Plan Referrals: Trav Mckeon DO [Primary Care Provider] -
[2018-08-30] MEDS: Insulin LISPRO 300 UNITS/3 ML VIAL SQ SCH ×3 (10:00→18:04)
[2018-08-30] MEDS: Aspirin Enteric Coated 81 MG Tablet PO SCH (10:00)
--- NOTE | 2018-08-30 10:56 | Event Note ---
Date of Encounter: 08/30/18 Time of Encounter: 09:30 Trav Barrow is a 67 YOM with history of DM, HTN, HLD, thyroid disease who presented to the ER with complaint of weakness and amnesia for the past 2 weeks. Stroke alert was called, CT show possible old lacunar infarct and [facility] consult stated that patient was not a candidate for TPA. He was admitted for stroke workup. MRI, carotid dopplers, and ECHO pending. Patient admits to having some left sided weakness that has now resolved. He continues to have no memory of the events that have occurred since August 13. Denies lightheadedness, CP, SOB, palpitations, or increased weakness. Denies slurring of speech or facial drooping. EXAM: General: Vitals as noted. No acute distress. Awake, sitting comfortably on the edge of the bed. Eyes : EOMI, conjunctiva clear. ENT : Dry mucosa noted. Respiratory : CTAB. No wheezing or respiratory distress. Cardiovascular : RRR, +S1, +S2. no murmur GI/Abdominal : Soft, non-tender Musculoskeletal: no LE edema or cyanosis Neurological: A&O x3, 4/4 strength bilaterally in the the upper/lower extremities. 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 No focal deficits noted, no slurring of speech, or facial droop. Skin: Warm, dry, intact. No rashes or lesions noted. Pych: Appropriate mood and affect. ASSESSMENT: GLOBAL AMNESIA Possibly secondary to stroke, seizure, encephalitis dt infection or autoimmune cause Weakness improved, short term memory deficits still present Neuro following Brain MRI, C-spine MRI, EEG, ECHO, Carotid Doppler pending B12, folate pending Continue ASA, statin HEMATURIA Large blood on UA at admission, possibly secondary to kidney stone, bladder cancer, lab error, or other Renal CT pending Continue IVFs Will repeat UA tomorrow Will need outpatient follow up with Urology for possible cystoscopy T2DM Continue LD SSI and accuchecks
[2018-08-30 12:10] LABS: Folate 13.5 ng/mL (3.0-16.0)
--- NOTE | 2018-08-30 17:28 | EEG/EMG/Oth Biometrics Report ---
EEG Procedure Report Date of procedure: 08/30/18 EEG Procedure: Routine EEG Procedure Note: Report: This EEG was acquired with standard international 10-20 electrode placement system with EKG recording. The Background activity during this EEG was characterized by the presence of posterior dominant alpha rhythm with best frequency up to 8.5 Hz. The background activity was reactive to eye openings. Sleep stages were characterized by the presence of background fragmentation, Vertex waves, K-complexes and sleep spindles. There are no electrographic seizures identified during this tracing. There are no epileptiform discharges noted. However, there was intermittent delta slowing at the left anterior temporal region. Photic stimulation produced no abnormalities. HV not performed during this study. EKG tracing showed no significant cardiac dysarrhythmia. Impression: This is a mildly abnormal EEG due to presence of intermittent focal delta slowing at the left anterior temporal region. Clinical Correlation: This EEG is consistent with focal neuronal dysfunction at the left anterior temporal region. This pattern can be seen in elderly patient with cognitive impairment, or focal structure abnormalities. Please correlate with imaging studies if indicated. Please correlate clinically
[2018-08-31 01:48] LABS: Hematocrit 38.7 % (37.5-50.1); Hemoglobin 12.8 g/dL (12.9-16.9); Mean Corpuscular HGB Conc 33.1 g/dL (31.6-35.5); Mean Corpuscular Hemoglobin 29.9 pg (28.0-33.3); Mean Corpuscular Volume 90.4 fL (83.0-100.0); Mean Platelet Volume 10.1 fL (9.4-12.4); Platelet Count 244 K/mcL (140-400); Red Blood Count 4.28 M/mcL (4.19-5.50); White Blood Count 6.2 K/mcL (4.3-11.1)
[2018-08-31 02:14] LABS: BUN/Creatinine Ratio 8 (6-26); Blood Urea Nitrogen 9 mg/dL (8-23); Calcium 9.1 mg/dL (8.6-10.3); Carbon Dioxide 25 mEq/L (23-29); Chloride 106 mEq/L (98-107); Glucose 159 mg/dL (70-105); Osmolality,Calculated 290 (280-300); Sodium 139 mEq/L (136-145); eGFR For African Americans > 60 (> 60); eGFR For Non-African Americans > 60 (> 60)
[2018-08-31] MEDS: Aspirin Enteric Coated 81 MG Tablet PO SCH (07:51)
[2018-08-31] MEDS: Insulin LISPRO 300 UNITS/3 ML VIAL SQ SCH ×3 (07:52→17:35)
--- NOTE | 2018-08-31 07:59 | Electrocardiograph Report ---
[place] [email or web address] Test Date: 2018-08-29 Pat Name: Trav Barrow Department: [id number] Room: [facility] Gender: M [employer]: : 1950 Requested By: Jean-Claude De Los Santos Order Number: [id number] Reading MD: Sergey Araujo Measurements Intervals [place] Rate: 76 P: 100 MI: 174 QRS: 124 QRSD: 90 T: 88 QT: 403 QTc: 454 Interpretive Statements Sinus rhythm Right ventricular hypertrophy Nonspecific T abnormalities, lateral leads Electronically Signed On 08-31-2018 7:57:47 EDT by Sergey Araujo
--- NOTE | 2018-08-31 08:33 | Internal Med Progress Note ---
<Nathan Ward - Last Filed: 08/31/18 15:02> Hospitalist Progress Note - Encounter Date of Encounter: 08/31/18 Time of Encounter: 08:31 - Subjective Interval History: Patient seen and examined resting comfortably in bedside chair with family at bedside. Awaiting MRI today. Patient denies any further amnesia symptoms. Neurology following. - Exam Vitals: Temp Pulse Resp BP Pulse Ox 98.5 F 73 16 144/86 96 08/31/18 06:41 08/31/18 06:41 08/31/18 06:41 08/31/18 06:41 08/31/18 06:41 Exam: General: Vitals as noted. No acute distress. Awake, sitting comfortably on the edge of the bed. Eyes : EOMI, conjunctiva clear. ENT : Dry mucosa, oropharynx clear Respiratory : CTAB. No wheezing or respiratory distress. Cardiovascular : RRR, +S1, +S2. no murmur GI/Abdominal : Soft, non-tender Musculoskeletal: no LE edema or cyanosis Neurological: A&O x3, 4/4 strength bilaterally in the the upper/lower extremities. 4/4 strip presser strength bilaterally. No focal deficits noted, no slurring of speech, or facial droop. Skin: Warm, dry, intact. No rashes or lesions noted. Pych: Appropriate mood and affect. - Assessment and Plan (1) Cervical stenosis of spinal canal Current Visit: Yes Status: Acute Assessment and Plan: MRI C- spine revealed degenerative disc disease as described above, exacerbating congenitally narrow cervical spinal canal. Spinal canal narrowing, moderate at C5-6, [id number] at C4-5, mild at C3-4, minimal at C2-3. Foraminal narrowing, moderate to severe at left C5-6, moderate at left C4-5, mild to moderate at left C3-4 and right C5-6, mild at left C2-3, minimal at right C4-5. Ortho spine consulted. (2) Transient global amnesia Current Visit: Yes Status: Resolved Assessment and Plan: Patient presented with weakness and amnesia for the past 2 weeks. Stroke alert was called, CT show possible old lacunar infarct. [facility] teleneurology consult determined that patient was not a candidate for TPA. Carotid dopplers revealed minimal plaques bilaterally. MRI revealed no acute infarct or acute intracranial process identified. Mild chronic small vessel ischemic changes. Echo revealed LVEF 60-65%, normal LV chamber size and function, asymmetric hypertrophy of the basal septum, mild left ventricular diastolic dysfunction, normal right ventricular structure and function. No evidence of pulmonary hypertension. No significant valvular dysfunction. No evidence of a PFO with agitated saline contrast. PT/OT consulted, recommended outpatient therapy. Neurology consulted, will follow as an outpatient, (3) Seizure-like activity Current Visit: Yes Status: Suspected Assessment and Plan: EEG revealed mildly abnormal EEG due to presence of intermittent focal delta slowing at the left anterior temporal region. This is nonspecific and not necessarily associated with increased risk of partial epilepsy but with his history of tongue biting, further testing even a prolonged EEG may be helpful, if clinically indicated. Differential includes partial epilepsy. Neurology following, did not recommend antiepileptic therapy at this time. (4) Hematuria Current Visit: Yes Status: Acute Assessment and Plan: Large blood on UA at admission, possibly secondary to kidney stone, bladder cancer, lab error, or other CT abd/plv revealed no evidence of nephrolithiasis or obstructive uropathy. Enlarged prostate contributing to mass effect upon the base of the bladder. Diffuse bladder mucosal thickening and slight prominence of the distal ureters may indicate chronic bladder outlet obstruction. Will need outpatient follow up with Urology for possible cystoscopy (5) Type 2 diabetes mellitus Current Visit: Yes Status: Chronic Assessment and Plan: HGB a1c 8.3 Continue SSI and monitor glucose closely. (6) Hypertension, essential Current Visit: Yes Status: Acute Assessment and Plan: BP slightly elevated. Continue home meds. (7) HLD (hyperlipidemia) Current Visit: Yes Status: Chronic Assessment and Plan: Continue statin (8) Hypothyroidism Current Visit: Yes Status: Acute Assessment and Plan: History of hypothyroidism. TSH 3.844. Continue Synthroid (9) Obesity (BMI 30-39.9) Current Visit: Yes Status: Chronic Assessment and Plan: BMI 31.2 Lifestyle modification (10) DVT prophylaxis Current Visit: Yes Status: Acute Assessment and Plan: EPCD's - Time Spent with Patient Total time spent is greater than 50% in coordination of care (as documented) at patient's floor/unit and/or counseling patient: Internal Medicine: Result - Labs CBC & Chem 7: 08/31/18 01:19 08/31/18 01:19 Labs: Short CBC 08/31/18 Range/Units 01:19 WBC 6.2 (4.3-11.1) K/mcL Hgb 12.8 L (12.9-16.9) g/dL Hct 38.7 (37.5-50.1) % Plt Count 244 (140-400) K/mcL BMP 08/31/18 01:19 Sodium 139 Potassium 4.0 D Chloride 106 Carbon Dioxide 25 BUN 9 Creatinine 1.07 Glucose 159 H Calcium 9.1 - ABG Interpretation ABG results: PT/INR, D-dimer PT 12.1 Seconds (9.4-12.1) 08/30/18 07:04 - Impressions Impressions Abdomen/Pelvis CT 08/30/18 00:17 IMPRESSION: 1. No evidence of nephrolithiasis or obstructive uropathy. 2. Enlarged prostate contributing to mass effect upon the base of the bladder. Correlate with urology history. 3. Diffuse bladder mucosal thickening and slight prominence of the distal ureters may indicate chronic bladder outlet obstruction. D/ / Binu Bragg MD / Binu Bragg MD Interpreting Provider: Binu Bragg MD Consult Discharge Plan - Plan Referrals: Trav Mckeon DO [Primary Care Provider] - <Robert Méndez - Last Filed: 08/31/18 18:46> Hospitalist Progress Note - Encounter Date of Encounter: 08/31/18 - Exam Vitals: Temp Pulse Resp BP Pulse Ox 98.5 F 84 16 118/84 96 08/31/18 14:08 08/31/18 14:08 08/31/18 14:08 08/31/18 14:08 08/31/18 14:08 - Assessment and Plan (1) Hematuria Current Visit: Yes Status: Acute (2) Type 2 diabetes mellitus Current Visit: Yes Status: Chronic (3) DVT prophylaxis Current Visit: Yes Status: Acute (4) Hypertension, essential Current Visit: Yes Status: Acute (5) HLD (hyperlipidemia) Current Visit: Yes Status: Chronic (6) Hypothyroidism Current Visit: Yes Status: Acute (7) Seizure-like activity Current Visit: Yes Status: Suspected (8) Obesity (BMI 30-39.9) Current Visit: Yes Status: Chronic (9) Cervical stenosis of spinal canal Current Visit: Yes Status: Acute (10) Transient global amnesia Current Visit: Yes Status: Resolved - Time Spent with Patient Total time spent is greater than 50% in coordination of care (as documented) at patient's floor/unit and/or counseling patient: Internal Medicine: Result - Labs CBC & Chem 7: 08/31/18 01:19 08/31/18 01:19 Labs: Short CBC 08/31/18 Range/Units 01:19 WBC 6.2 (4.3-11.1) K/mcL Hgb 12.8 L (12.9-16.9) g/dL Hct 38.7 (37.5-50.1) % Plt Count 244 (140-400) K/mcL BMP 08/31/18 01:19 Sodium 139 Potassium 4.0 D Chloride 106 Carbon Dioxide 25 BUN 9 Creatinine 1.07 Glucose 159 H Calcium 9.1 - ABG Interpretation ABG results: PT/INR, D-dimer PT 12.1 Seconds (9.4-12.1) 08/30/18 07:04 - Impressions Impressions Echocardiogram 08/30/18 00:15 Impressions: LVEF 60-65%. Normal LV chamber size and function. Asymmetric hypertrophy of the basal septum. Mild left ventricular diastolic dysfunction. Normal right ventricular structure and function. No evidence of pulmonary hypertension. No significant valvular dysfunction. No evidence of a PFO with agitated saline contrast. Left Ventricular Wall Motion: Rest Echo Findings All wall segments showed normal motion. Findings: Study Quality * Technically adequate exam. ECG Findings * Normal sinus rhythm. Left Ventricle * LVEF 60-65%. * Normal LV chamber size and function. * Asymmetric hypertrophy of the basal septum. * Mild left ventricular diastolic dysfunction. Right Ventricle * Normal right ventricular structure and function. Left Atrium * Mildly dilated left atrium. Right Atrium * Normal right atrial size. Interatrial Septum * No evidence of a PFO with agitated saline contrast. Aortic Valve * Trileaflet aortic valve with normal function. * No aortic regurgitation. * No aortic stenosis. Mitral Valve * Normal mitral valve structure and function. * No mitral regurgitation. * No mitral stenosis. Tricuspid Valve * Normal tricuspid valve structure and function. * Trace tricuspid regurgitation. * No evidence of pulmonary hypertension. Pulmonic Valve * Normal pulmonic valve structure and function. * No pulmonic regurgitation. Aorta * Normally sized aortic root. Pericardium * The pericardium appears normal. IVC * Normal IVC dimensions and inspiratory collapse. Pulmonary Artery * Pulmonary artery not well visualized. Brain MRI 08/31/18 00:10 IMPRESSION: 1. No acute infarct or acute intracranial process identified. 2. Mild chronic small vessel ischemic changes. D/ / Davon Gomez MD / Davon Gomez MD Interpreting Provider: Davon Gomez MD Cervical Spine MRI 08/31/18 10:37 IMPRESSION: Degenerative disc disease as described above, exacerbating congenitally narrow cervical spinal canal. Spinal canal narrowing, moderate at C5-6, [id number] at C4-5, mild at C3-4, minimal at C2-3. Foraminal narrowing, moderate to severe at left C5-6, moderate at left C4-5, mild to moderate at left C3-4 and right C5-6, mild at left C2-3, minimal at right C4-5. D/ / Erwin Valerio MD / Erwin Valerio MD Interpreting Provider: Erwin Valerio MD - Attending Attestation I have seen and independently assessed this patient and I agree with plan as documented Plan Cervical spinal stenosis with ataxia and urinary incontinence. Spine consulted Transient global amnesia. MRI negative for stroke. Outpatient f/u with neurology <Nathan Ward - Last Filed: 08/31/18 15:02> (4) Hematuria Qualifiers: Hematuria type: unspecified type Qualified Code(s): R31.9 - Hematuria, unspecified (5) Type 2 diabetes mellitus Qualifiers: Diabetes mellitus intermediate insulin use: without terminal block assembler use Diabetes mellitus complication status: with diabetic arthropathy Diabetes mellitus complication detail: with neuropathic arthropathy Qualified Code(s): E11.610 - Type 2 diabetes mellitus with diabetic neuropathic arthropathy (7) HLD (hyperlipidemia) Qualifiers: Hyperlipidemia type: unspecified Qualified Code(s): E78.5 - Hyperlipidemia, unspecified <Robert Méndez - Last Filed: 08/31/18 18:46> (1) Hematuria Qualifiers: Hematuria type: unspecified type Qualified Code(s): R31.9 - Hematuria, unspecified (2) Type 2 diabetes mellitus Qualifiers: Diabetes mellitus intermediate insulin use: without terminal block assembler use Diabetes mellitus complication status: with diabetic arthropathy Diabetes mellitus complication detail: with neuropathic arthropathy Qualified Code(s): E11.610 - Type 2 diabetes mellitus with diabetic neuropathic arthropathy (5) HLD (hyperlipidemia) Qualifiers: Hyperlipidemia type: unspecified Qualified Code(s): E78.5 - Hyperlipidemia, unspecified
[2018-08-31 09:19] LABS: Thyroid Stimulating Hormone 3.844 mcIU/mL (0.340-5.600)
--- NOTE | 2018-08-31 09:27 | Neurology Progress Note ---
Date of Encounter: 08/31/18 Time of Encounter: 09:25 Assessment and Plan (1) Altered mental status Current Visit: Yes Status: Acute Patient presented with generalized confusion, amnesia, weakness, and ataxia He was recently hospitalized for similar symptoms but we do not have those records Work up at admission demonstrated remote infarct, hematuria, and bibasilar airspace disease Work up did not demonstrate new infarct, evidence of infection, or metabolic deviation Brain MRI, C-Spine MRI, Echocardiogram, Carotid Doppler were all ordered Carotid Doppler showed bilateral minimal plaque, other tests pending, B12 and folate within normal limits EEG also demonstrated intermittent slowing on the left, no evidence of seizure EEG is abnormal but not specific, prolonged EEG may be helpful if clinically indicated Differential is wide, and includes stroke, seizure, encephalopathy of several etiologies Physical exam is negative for focal deficits, but positive for cerebellar deficits Also recommend securing documentation from [facility] We will anticipate imaging and lab results and continue to follow Further recommendations per Dr. Curry Qualifiers: Altered mental status type: transient alteration of awareness Qualified Code(s): R40.4 - Transient alteration of awareness (2) Ataxia Current Visit: Yes Status: Acute (3) Generalized weakness Current Visit: Yes Status: Acute Subjective Principal diagnosis: altered mental status Interval history: No acute events overnight, no acute complaints this morning. He states his general mental status and well-being has improved. MRI pending this morning. Objective - Constitutional Vitals: Temp Pulse Resp BP Pulse Ox 98.5 F 73 16 144/86 96 08/31/18 06:41 08/31/18 06:41 08/31/18 06:41 08/31/18 06:41 08/31/18 06:41 Exam: Examination: General Examination: *CONSTITUTIONAL: Alert and oriented x3, no acute distress *GENERAL APPEARANCE OF PATIENT appears healthy and well groomed *EYES: pupils equal, round, reactive to light and accommodation, conjunctiva clear without masses or ulcerations *CARDIOVASCULAR: Regular rate and rhythm, S1, S2, no mumurs, rubs, or gallops, no peripheral edema, no carotid bruit * MUSCULOSKELETAL: *GAIT AND STATION: Gait not tested, positive Romberg's test *ASSESSMENT OF MUSCLE STRENGTH IN THE UPPER AND LOWER EXTREMITIES bilateral deltoid, bicep, tricep, horse breaker strength, hip flexors ,anterior tibialis, dorsoflexion of the foot 5/5 *MUSCLE TONE IN THE UPPER AND LOWER EXTREMITIES normal. No abnormal movements, fasciculations or atrophy identified. No cogwheel rigidity. Neurological: *ORIENTATION to person, situation, time and place *LANGUAGE AND FUNCTION no significant aphasia or dysarthia was noted. *ATTENTION AND CONCENTRATION are inhibited *FUND OF KNOWLEDGE aware of current events, past history, vocabulary *MENTAL attention span and concentration slowed *CN II visual chowdhury intact *CN III,IV, PERRLA extraocular eye movements were full, no nystagmus and no ptosis noted. *CN V shows normal sensation and jaw opens symmetrically. *CN VII shows normal facial movement symmetrically, upper and lower bilaterally. *CN VIII shows no significant hearing loss on exam *CN IX-X palate elevated symmetrically *CN XI normal strength in the sternocleidomastoid muscles, symmetrical shoulder shrugging. *CN XII tongue protruded in the midline, with normal strength and movement. *SENSORY EXAMINATION light touch intact, slightly diminished bilateral lower extremities *REFLEXES: deep tendon reflexes were not elicited *CEREBELLAR TESTING normal finger to nose *PAIN LEVEL 0/10 Results - Laboratory Findings CBC and BMP: 08/31/18 01:19 08/31/18 01:19 Abnormal lab findings: Abnormal lab results Hgb 12.8 g/dL (12.9-16.9) L 08/31/18 01:19 Potassium 3.1 mEq/L (3.5-5.1) L 08/30/18 07:04 Glucose 159 mg/dL (70-105) H 08/31/18 01:19 POC Glucose 170 mg/dL (70-99) H 08/30/18 19:20 Hemoglobin A1c 8.3 % (-5.6) H 08/30/18 07:04 Serum Total Protein 6.2 g/dL (6.4-8.9) L 08/30/18 07:04 Ur Specific [place] > 1.030 (1.010-1.025) H 08/29/18 21:00 Urine Protein 30 mg/dL (Neg-Trace) H 08/29/18 21:00 Urine Ketones Trace mg/dL (Negative) H 08/29/18 21:00 Urine Blood Large (Negative) H 08/29/18 21:00 Urine Microscopic RBC TNTC per hpf (0-3) H 08/29/18 21:00 Ur Squamous Epith Cells Moderate per lpf (None-Few) H 08/29/18 21:00 Consult Discharge Plan - Plan Referrals: Trav Mckeon DO [Primary Care Provider] -
[2018-08-31] MEDS: Losartan/HCTZ 50-12.5 TABLET PO SCH (10:00)
[2018-08-31] MEDS: amLODIPine 5 MG TABLET PO SCH (10:01)
--- NOTE | 2018-08-31 13:39 | Event Note ---
Date of Encounter: 08/31/18 Time of Encounter: 13:27 Brain MRI showing no acute changes, mild chronic vascular changes. Cervical Spine MRI showing multiple areas of mild to moderate stenosis due to disc bulging and congenital narrowing. The patients clinical status has significantly improved and he is now at baseline, his original mental status changes may be attributed to transient global amnesia as a diagnosis of exclusion. Neurology service will sign off, recommend outpatient orthopedic follow up for cervical spinal stenosis.
[2018-09-01] MEDS: Insulin LISPRO 300 UNITS/3 ML VIAL SQ SCH (08:08)
[2018-09-01] MEDS: amLODIPine 5 MG TABLET PO SCH (08:09)
[2018-09-01] MEDS: Aspirin Enteric Coated 81 MG Tablet PO SCH (08:09)
[2018-09-01] MEDS: Losartan/HCTZ 50-12.5 TABLET PO SCH (08:10)
--- NOTE | 2018-09-01 09:46 | Discharge Summary ---
<Onel,Meaghan - Last Filed: 09/01/18 09:52> - NOTES TO OUTPATIENT PROVIDER Notes to Outpatient Provider: Mr. Barrow presented with confusion amnesia-like symptoms. Neurology was consulted. MRI of the head and EEG was done. MRI shows severe foraminal narrowing of C5 and C6. Spine surgery was consulted recommending outpatient follow-up if symptoms persist. All symptoms currently resolved. No labs to follow up on this time. Started on 81 mg aspirin. Date of Encounter: 09/01/18 Time of Encounter: 09:55 - Discharge Diagnosis (1) Transient global amnesia Priority: Primary Status: Resolved (2) Seizure-like activity Priority: Secondary Status: Suspected (3) Cervical stenosis of spinal canal Priority: Secondary Status: Acute (4) Hematuria Priority: Secondary Status: Resolved Qualifiers: Hematuria type: unspecified type Qualified Code(s): R31.9 - Hematuria, unspecified (5) Type 2 diabetes mellitus Priority: Secondary Status: Chronic Qualifiers: Diabetes mellitus mcfp insulin use: without mcfp use Diabetes mellitus complication status: with diabetic arthropathy Diabetes mellitus complication detail: with neuropathic arthropathy Qualified Code(s): E11.610 - Type 2 diabetes mellitus with diabetic neuropathic arthropathy (6) Hypertension, essential Priority: Secondary Status: Acute (7) HLD (hyperlipidemia) Priority: Secondary Status: Chronic Qualifiers: Hyperlipidemia type: unspecified Qualified Code(s): E78.5 - Hyperlipidemia, unspecified (8) Hypothyroidism Priority: Secondary Status: Acute Qualifiers: Hypothyroidism type: unspecified Qualified Code(s): E03.9 - Hypothyroidism, unspecified (9) DVT prophylaxis Priority: Secondary Status: Acute Hospital course: Mr. Barrow is a 67 year old male who presented to the ED on 08/29/18 complaining of confusion and unsteady gait. Alert was called in the ED and had head CT showed concern for lacunar infarct. During his admission he had a full neurological exam which did not show any unilateral deficits. Neurology was consulted and he underwent MRI of the head, cervical spine and EEG. EEG did not show any acute epileptic signals. MRI of the head did not show any acute abnormalities but did show mild ischemic changes. Carotid Dopplers did not show any stenotic plaques. MRI of the cervical spine showed severe foraminal narrowing of C5 and C6. Spine surgery was consulted, Dr. Taylor saw the patient and recommended no surgical intervention at this time. Recommends that if he has any symptoms of arm paracentesis he should follow outpatient with Dr. Taylor. He is recommended to continue 81 mg aspirin daily as well as daily statin. He reports he is walking around the [place] without any difficulty. This morning she is awake, alert and oriented to person place and time. Discharge discussed with: patient - Time Spent with Patient Total time spent providing and/or coordinating discharge services: - Discharge Medications Prescriptions: New Aspirin Enteric Coated [Aspirin EC] 81 mg PO DAILY 30 Days #30 tablet. Continued metFORMIN [Glucophage] 1,000 mg PO BIDWM Pravastatin Sodium [Pravachol] 20 mg PO HS Levothyroxine [Synthroid] 50 mcg PO DAILY Glimepiride [Amaryl] 4 mg PO DAILY Metoprolol Tartrate 50 mg PO BID Amlodipine Besylate 10 mg PO DAILY Losartan/Hydrochlorothiazide [Losartan-Hctz 50-12.5 mg Tab] 1 each PO DAILY Home Medications: Levothyroxine [Synthroid] 50 mcg PO DAILY 10/23/16 [History] Pravastatin Sodium [Pravachol] 20 mg PO HS 10/23/16 [History] metFORMIN [Glucophage] 1,000 mg PO BIDWM 10/23/16 [History] Amlodipine Besylate 10 mg PO DAILY 08/29/18 [History] Glimepiride [Amaryl] 4 mg PO DAILY 08/29/18 [History] Losartan/Hydrochlorothiazide [Losartan-Hctz 50-12.5 mg Tab] 1 each PO DAILY 08/29/18 [History] Metoprolol Tartrate 50 mg PO BID 08/29/18 [History] Aspirin Enteric Coated [Aspirin EC] 81 mg PO DAILY 30 Days #30 tablet. 09/01/18 [Rx] Allergies/Adverse Reactions: Allergy/AdvReac Type Severity Reaction Status Date / Time No Known Allergies Allergy Verified 08/29/18 18:59 Date of admission: 08/29/18 21:18 Primary care physician: Trav Mckeon Consults: 08/30/18 00:11 Consult to Neurology [CONS] Routine Consulting Provider: [facility] Reason for Consult: TIA/stroke; periods of global amnesia Call Completed: No Consult to Physical Therapy [CONS] Routine Comment: Evaluate, develop and implement POC Reason for Consult: TIA/stroke Does patient have active BEDREST order?: Yes Is patient medically & hemodynamically stable?: Yes Patient assessed for mobility or mobilized this visit?: Yes Consult to Manager Supply Chain Planning [CONS] Routine Reason for SW Consult: D/C planning 08/30/18 15:17 Consult to Interpret Exam [CONS] Routine Consulting Provider: Liana Curry Consult to Interpret Exam: Interpret EEG 08/31/18 12:45 Consult to Orthopedic Surgery [CONS] Routine Consulting Provider: [facility] Reason for Consult: cervical spine stenosis with ataxia and incontinence Call Completed: Yes Discharging clinician: Meaghan Sykes Anticipated date of discharge: 09/01/18 - Constitutional Vitals: Temp Pulse Resp BP Pulse Ox 98 F 67 16 126/74 98 09/01/18 06:30 09/01/18 06:30 09/01/18 06:30 09/01/18 06:30 09/01/18 06:30 General appearance: Present: cooperative, mild distress, A&O X 3, pleasant, answers questions appropriately Exam: General: Vitals as noted. No acute distress. Awake, sitting comfortably on the edge of the bed. Eyes : EOMI, conjunctiva clear. ENT : Dry mucosa, oropharynx clear Respiratory : CTAB. No wheezing or respiratory distress. Cardiovascular : RRR, +S1, +S2. no murmur GI/Abdominal : Soft, non-tender Musculoskeletal: no LE edema or cyanosis Neurological: A&O x3, 5/5 strength bilaterally in the the upper/lower extremities. 5/5 rehab spec strength bilaterally. No focal deficits noted, no slurring of speech, or facial droop. Skin: Warm, dry, intact. No rashes or lesions noted. Pych: Appropriate mood and affect. - Patient Status Disposition: Home, Self-Care Condition: Fair Overall status at discharge: patient is back to baseline - Discharge Instructions Follow Up With: Trav Mckeon DO [Primary Care Provider] - 09/06/18 1:45 pm Donnie Taylor Jr, MD [Partnered Physician] - 09/29/18 1:00 pm (the office will call with appt) Liana Curry MD [Partnered Physician] - 09/20/18 3:00 pm Additional Instructions: Follow-up appointments: If there is not an appointment listed below, please call your physician and schedule a follow-up appointment. If you have congestive heart failure and your symptoms return, make an appointment with your physician. Medication List: Carry an up to date list of medications you are taking at all time. We have given you an updated medication list including any new medications that you have been prescribed. Please provide that list to your primary provider Symptoms: If your condition changes or you experience any of the following symptoms, notify your physician immediately: Unusual or worsening pain, fever, persistent nausea and vomiting, bleeding, increase in swelling (especially in your legs), sudden weight gain, extreme dizziness, chest pain, increased drainage or redness from a wound or incision. Go to the emergency department if you experience a problem with breathing. Weights: If you have a history of swelling or shortness of breath, weigh yourself daily and notify your physician if you have a weight gain of two or more pounds in one day or 5 or more pounds in a week. If you experience any of the warning signs for stroke: Sudden numbness or weakness of the face, arm or leg; especially on one side of the body, sudden confusion, trouble speaking or understanding, sudden trouble seeing in one or both eyes, sudden trouble walking, dizziness, loss of balance or coordination, sudden sever headache with no cause; Call 911 or go to the emergency room. Stroke is a medical emergency. Some risk factors for stroke: Age, cigarette smoking, diabetes, excessive alcohol consumption, family history, high blood pressure, overweight, physical inactivity, prior stroke, heart attack, diagnosis of carotid artery stenosis or other artery disease. If you smoke, STOP: Smoking or tobacco use significantly increases your risk of heart and lung disease. Your chance of disease greatly increases if you continue to smoke. For more information, call the [place] tobacco quit line for smoking cessation 0-318-QBBT-NOW ( ) - Diet and Activity Activity: increase activity as tolerated Diet: diabetic diet <Robert Méndez - Last Filed: 09/01/18 18:37> Orders not resulted at time of discharge: Pending orders 08/30/18 06:00 ECG 12 lead ECG [ECG] AM 0600 Date of Encounter: 09/01/18 - Discharge Diagnosis (1) Hematuria Status: Resolved Qualifiers: Hematuria type: unspecified type Qualified Code(s): R31.9 - Hematuria, unspecified (2) Type 2 diabetes mellitus Status: Chronic Qualifiers: Diabetes mellitus mcfp insulin use: without mcfp use Diabetes mellitus complication status: with diabetic arthropathy Diabetes mellitus complication detail: with neuropathic arthropathy Qualified Code(s): E11.610 - Type 2 diabetes mellitus with diabetic neuropathic arthropathy (3) DVT prophylaxis Status: Acute (4) Hypertension, essential Status: Acute (5) HLD (hyperlipidemia) Status: Chronic Qualifiers: Hyperlipidemia type: unspecified Qualified Code(s): E78.5 - Hyperlipidemia, unspecified (6) Hypothyroidism Status: Acute Qualifiers: Hypothyroidism type: unspecified Qualified Code(s): E03.9 - Hypothyroidism, unspecified (7) Seizure-like activity Status: Suspected (8) Obesity (BMI 30-39.9) Status: Chronic (9) Cervical stenosis of spinal canal Status: Acute (10) Transient global amnesia Status: Resolved Hospital course: Mr. Barrow is a 67 year old male - Time Spent with Patient Total time spent providing and/or coordinating discharge services: Date of admission: 08/29/18 21:18 Primary care physician: Trav Mckeon Consults: 08/30/18 00:11 Consult to Neurology [CONS] Routine Consulting Provider: [facility] Reason for Consult: TIA/stroke; periods of global amnesia Call Completed: No Consult to Physical Therapy [CONS] Routine Comment: Evaluate, develop and implement POC Reason for Consult: TIA/stroke Does patient have active BEDREST order?: Yes Is patient medically & hemodynamically stable?: Yes Patient assessed for mobility or mobilized this visit?: Yes Consult to Manager Supply Chain Planning [CONS] Routine Reason for SW Consult: D/C planning 08/30/18 15:17 Consult to Interpret Exam [CONS] Routine Consulting Provider: Liana Curry Consult to Interpret Exam: Interpret EEG 08/31/18 12:45 Consult to Orthopedic Surgery [CONS] Routine Consulting Provider: [facility] Reason for Consult: cervical spine stenosis with ataxia and incontinence Call Completed: Yes - Constitutional Vitals: Temp Pulse Resp BP Pulse Ox 97.6 F 64 16 107/69 98 09/01/18 10:57 09/01/18 10:57 09/01/18 10:57 09/01/18 10:57 09/01/18 10:57 - Attending Attestation I have seen and independently assessed this patient and I agree with discharge summary as documented Exam Gen. NAD CVS. S1 S2 WNL Resp. CTAB GI. Soft, NT, ND, +BS Plan Cervical spinal stenosis with ataxia and urinary incontinence. Spine consulted and recommended no acute surgery inpatient Transient global amnesia. Resolved. MRI negative for stroke. Outpatient f/u with neurology.
[2018-09-01 10:58] VITALS: BP 107/69
== END 2018-09-01 12:39 | disposition home or self-care (01) ==
LOC: EMEROOARM 18:44 → 3NENU 18:44 → SUATTDRO 21:18 → 3NENU 22:30
PROVIDERS: ADMIT Family Medicine; ATTEND Internal Medicine